=== PATIENT | male | born 1985 | race Caucasian/White ===

== ENCOUNTER 2025-06-07 14:01 | Emergency (ER) | payer SELFPAY ==
[2025-06-07 14:03] VITALS: BP 180/93
--- NOTE | 2025-06-07 15:08 | ED.GENMED ---
History of Present Illness
General
Chief Complaint: Musculo-Skeletal Complaint
Source: patient
Exam Limitations: none
Time Seen by Provider: 06/07/25 14:38
Nursing documentation reviewed up to this point in time: agreed with
History of Present Illness
History of Present Illness:
Patient presents to ED secondary to left shoulder pain which occurred at work today, when he fell into a hole and in the process, he reached up with his left arm, causing extension of the shoulder. Denies any other injuries. Since the incident,
pain has improved. Denies a loss of sensation or weakness. Denies head injury. Denies neck pain. Denies chest pain or shortness of breath. Denies back pain.
Review of Systems
Review of Systems
Allergies reviewed?: Yes
All Other Systems: ROS reviewed and negative except as documented in HPI and ROS
Constitutional: Reports no symptoms; Denies fever
ABD/GI: Reports no symptoms
Musculoskeletal: Reports other (Shoulder pain)
Skin: Reports no symptoms
Neurological: Reports no symptoms; Denies weakness or numbness
Phy Exam
Physical Exam
Physical Exam:
Physical Exam
General: mild painful distress, not acutely ill. afebrile
Head: nc/at. eomi
Neck: supple. normal range of motion
Neuro: alert and oriented x 3. no focal neurological deficits
Skin: no rash
Psychiatric: well kept. interactive and cooperative
Extremities: mild tenderness to palpation over left G-H joint, without obvious deformity/swelling/ecchymosis
Course
Orders/Labs/Results
Orders:
Orders
06/07/25 14:05
CR Shoulder - Left Min 2 View* Urgent
Comment:
Reason For Exam: injury
06/07/25 15:08
Shoulder Immobilizer Left- Tx ONCE
Ibuprofen [Motrin] 400 mg PO NOW STA
Vital Signs
Initial and Last Documented VS:
Initial Vital Signs
Temp Pulse Resp BP Pulse Ox
98.0 F 54 20 180/93 99
06/07/25 14:03 06/07/25 14:03 06/07/25 14:03 06/07/25 14:03 06/07/25 14:03
Last Documented Vital Signs
Temp Pulse Resp BP Pulse Ox
98.0 F 54 20 180/93 99
06/07/25 14:03 06/07/25 14:03 06/07/25 14:03 06/07/25 14:03 06/07/25 15:08
MDM/Problems Addressed
MDM/Problems Addressed:
X-ray report reviewed and discussed with patient.
History and exam consistent with likely mild shoulder strain versus rotator cuff tear. Otherwise, patient is asymptomatic at rest without obvious deformity. Patient will be placed on arm sling for relief, along with recommendation to follow-up
with work comp physician as an outpatient for further evaluation and treatment, including potentially obtaining MRI shoulder as an outpatient, if symptoms persist. Patient expressed understanding at time of discharge.
*Pulse Oximetry
SaO2: 99
Oxygen Mode of Delivery: Room air
Patient hypoxic: no
*Critical Care Note
Total Time (30-74mins, 75-104mins- exclusive of procedures): Not Applicable
ED Attending Note
-
Portions of this chart may have been created with voice recognition software.� Occasional wrong word or��sound alike� substitutions may have occurred due to the inherent limitations of voice recognition software.
Discharge Plan
Departure
Patient Disposition: Home (Routine Discharge)
Date of Disposition: 06/07/25
Time of Disposition: 15:08
Patient with high blood pressure during this ER visit?: Yes
Condition: Fair
Discharge Problem:
Left shoulder strain
Instructions: How to Use a Shoulder Sling, Shoulder Sprain ED
Stand Alone Forms: Return to Work
Activity Restrictions/Additional Instructions:
As discussed, please follow-up with your work comp physician for further evaluation and treatment, including potentially obtaining MRI shoulder as an outpatient, if symptoms persist.
Interventions
Interventions:
*Risk Screen - Suicide Last Done: 06/07/25 14:33
*General Assessment Last Done: 06/07/25 14:03
*Neglect/Abuse Screening Last Done: 06/07/25 14:33
*ED- Fall Risk Assessment Last Done: 06/07/25 14:33
*ED COVID-19 Vaccine History Last Done: 06/07/25 14:33
*Nursing Disposition Last Done: 06/07/25 15:22
ED-Musculoskeletal Assessment Last Done: 06/07/25 14:32
Discharge Date and Time
Discharge Date/Time: 06/07/25 15:23
Print Language: BENGALI
[2025-06-07] MEDS: MOTRIN 400 MG PO (15:11)
== END 2025-06-07 15:23 | disposition home or self-care (01) ==
LOC: EMR 14:01
PROVIDERS: EMERGENCY PHYSICIAN Emergency Medicine; FAMILY PHYSICIAN Nurse Practitioner Adult Health
DX: S46.912A Strain of unspecified muscle, fascia and tendon at shoulder and upper arm level, left arm, initial encounter (principal); X50.1XXA Overexertion from prolonged static or awkward postures, initial encounter; W17.2XXA Fall into hole, initial encounter; Y99.0 Civilian activity done for income or pay
CPT/HCPCS: 99283; 73030